=== PATIENT | female | born 1995 | race Caucasian/White ===

== ENCOUNTER → 2019-06-18 13:50 | Outpatient (CLI) | payer OTHER, SELFPAY ==
--- NOTE | 2019-06-18 | DI.US.S_ITS ---
PROCEDURE: US PELVIC COMPLETE INDICATIONS: PELVIC AND PERINEAL PAIN TECHNIQUE: Real-time scanning was performed of the pelvic organs, with image documentation. Additional endovaginal scanning was necessary due to incomplete visualization of the adnexal and endometrial structures by transabdominal scanning. COMPARISON: None. FINDINGS: Transabdominal scanning: Limited scanning through the kidneys shows no hydronephrosis. No pathologic free abdominal or pelvic fluid. Endovaginal scanning: Uterus: Uterus is normal in size at 7.0 3.2 x 3.9 cm. The endometrium measures up 3.5 mm in combined thickness. Intrauterine device in expected position. Ovaries: Bilateral follicular cysts present otherwise ovaries are normal measuring 3.4 x 2.3 x 2.3 cm on the right and 2.7 x 2.1 x 2.2 cm on the left. IMPRESSION: No source for pelvic pain identified. Dictated by: Lv EVERETT Interpreted: Shaka Allred MD on 06/18/2019 at 16:18 Approved by: Shaka Allred M.D. on 06/18/2019 at 17:50
== END ==
PROVIDERS: PCP Family Medicine; Visit Provider Family Medicine
DX: R10.2 Pelvic and perineal pain (principal); N83.02 Follicular cyst of left ovary; N83.01 Follicular cyst of right ovary; Z97.5 Presence of (intrauterine) contraceptive device
CPT/HCPCS: 76830; 76856